=== PATIENT | female | born 1955 | race Caucasian/White ===

== ENCOUNTER 2017-12-13 07:19 | Inpatient (IN) | payer OTHER ==
[2017-12-13 07:19] VITALS: BMI 26.6
[2017-12-13] MEDS ORDERED: Sodium Chloride 0.9% 1,000 ML IV ONE (07:54)
[2017-12-13] MEDS ORDERED: Sodium Chloride 0.9% 1,000 ML ONE (08:07)
[2017-12-13 08:10] LABS: SQUAMOUS EPITHIAL 1 /hpf (0-5); URINE BILIRUBIN NEGATIVE (NEGATIVE); URINE BLOOD 1+ (NEGATIVE); URINE CLARITY Clear (Clear); URINE COLOR Yellow (YELLOW); URINE GLUCOSE (UA) NORMAL (Normal); URINE LEUKOCYTE ESTERASE NEG Leu/uL (Negative); URINE PROTEIN 1+ mg/dL (NEGATIVE); URINE UROBILINOGEN NORMAL mg/dL (0.2-1.0)
[2017-12-13 08:11] LABS: BASO # 0.1 K/uL (0.0-0.2); BASO % 0.5 % (0.0-2.0); HEMOGLOBIN 13.7 g/dL (11.0-16.0); LYMPH % 6.4 % (20.0-40.0); MEAN CELL VOLUME 88.7 fL (81.0-99.0); MEAN CORPUSCULAR HEMOGLOBIN 30.2 pg (27.0-31.0); MEAN CORPUSCULAR HGB CONC 34.1 g/dL (33.0-37.0); MEAN PLATELET VOLUME 8.3 fL (7.2-11.7); MONO # 0.8 K/uL (0.0-0.8); MONO % 4.8 % (0.0-10.0); NEUT # 14.1 K/uL (1.8-7.0); NEUT % 88.3 % (50.0-75.0); PLATELET COUNT 249 K/uL (130-400); RBC 4.54 Mil/uL (3.80-5.20); RED CELL DISTRIBUTION WIDTH 13.7 % (11.5-14.5)
[2017-12-13 08:23] LABS: ALB/GLOB RATIO 1.6 (1.0-2.1); ALBUMIN 5.1 g/dL (3.5-5.0); ALT/SGPT 44 U/L (9-52); AST/SGOT 29 U/L (14-36); BLOOD UREA NITROGEN 16 mg/dL (7-17); CALCIUM 9.2 mg/dl (8.6-10.4); GFR AFRICAN-AMERICAN > 60; GFR NON-AFRICAN AMERICAN > 60
[2017-12-13 08:32] LABS: BANDS 3 % (0-2); LYMPHOCYTE 7 % (20-40); MONOCYTE 4 % (0-10); NEUTROPHIL 86 % (50-75); PLATELET ESTIMATE NORMAL (NORMAL); TOTAL CELLS COUNTED 100
--- NOTE | 2017-12-13 08:44 | C.PDOC ---
History Of Present Illness 62-year-old female, PMHx includes Hypertension and Kidney Stones, presents to the emergency department with complaints of burning sensation in the back, radiating up to shoulder for the past two days. Pain worsened yesterday, associated with three episodes of non-bloody/non-bilious vomiting. She denies any abdominal pain, fever, chills, symptoms, or any other associated symptoms. No other complaints at this time. Time Seen by Provider: 12/13/17 07:37 Chief Complaint (Nursing): Back Pain History Per: Patient History/Exam Limitations: no limitations Onset/Duration Of Symptoms: Days Current Symptoms Are (Timing): Still Present Severity: Moderate Past Medical History Reviewed: Historical Data, Nursing Documentation, Vital Signs Vital Signs: Last Vital Signs Temp 98.1 F 12/13/17 11:33 Pulse 83 12/13/17 11:33 Resp 18 12/13/17 11:33 BP 189/105 H 12/13/17 11:33 Pulse Ox 100 12/13/17 11:33 - Medical History PMH: Arthritis, Gall Bladder Disease (GALLSTONES), HTN, Kidney Stones, Osteoporosis, Chronic Kidney Disease, Rheumatoid Arthritis Surgical History: Cholecystectomy, Endoscopy, Hernia Repair (Laparoscopic Umbilical Herniorrhaphy) Other Surgeries: hysterectomy - [facility] Procedures LAPAROSCOPIC CHOLECYSTECTOMY (03/25/14) OTHER LAPAROSCOPIC UMBILICAL HERNIORRHAPHY (03/25/14) REMOV URETERAL DRAIN (01/06/15) URETERAL CATHETERIZATION (12/22/14) URETEROSCOPY (01/06/15) Family History: States: No Known Family Hx - Social History Hx Tobacco Use: No Hx Alcohol Use: No Hx Substance Use: No - Immunization History Hx Tetanus Toxoid Vaccination: No Hx Influenza Vaccination: No Hx Pneumococcal Vaccination: No Review Of Systems Constitutional: Negative for: Fever, Chills Respiratory: Negative for: Shortness of Breath Gastrointestinal: Positive for: Nausea, Vomiting Genitourinary: Negative for: Incontinence, Vaginal Discharge, Vaginal Bleeding Musculoskeletal: Positive for: Back Pain Skin: Negative for: Rash Neurological: Negative for: Weakness, Numbness ED Course And Treatment - Laboratory Results Result Diagrams: 12/13/17 08:05 12/13/17 08:05 O2 Sat by Pulse Oximetry: 99 Pulse Ox Interpretation: Normal (RA) Medical Decision Making Medical Decision Making: Plan: * CT Abd/Pel * Bloodwork * IVF, Toradol * Urine Culture * UA * Reassess and Disposition * 1141 pt with neg non contrast abdominal ct, neg cxr, neg ua. pt with right flank pain, n/v and leucocytosis. discussed with Dr Tariq Yoder, will admit to his service (covers for Dr Lynch). Disposition Discussed With Dr.: Derrcik Yoder Doctor Will See Patient In The: Hospital - Disposition Disposition: HOSPITALIZED Disposition Time: 11:42 Condition: STABLE Forms: [facility] (Belarusian) - Clinical Impression Clinical Impression: Leucocytosis, Vomiting, Right flank pain - Scribe Statement The provider has reviewed the documentation as recorded by the Scribe (Renee Mcrae) All medical record entries made by the Scribe were at my direction and personally dictated by me. I have reviewed the chart and agree that the record accurately reflects my personal performance of the history, physical exam, medical decision making, and the department course for this patient. I have also personally directed, reviewed, and agree with the discharge instructions and disposition.
--- NOTE | 2017-12-13 10:11 | CT ---
Date of service: 12/13/2017 PROCEDURE: CT Abdomen and Pelvis without intravenous contrast HISTORY: right flank pain and hematuria, hx stones. COMPARISON: 01/04/2017. TECHNIQUE: CT scan of the abdomen and pelvis was performed without administration of intravenous contrast. Oral contrast was not administered. Coronal and sagittal reformatted images were obtained. . Radiation dose: Total exam DLP = mGy-cm. This CT exam was performed using one or more of the following dose reduction techniques: Automated exposure control, adjustment of the mA and/or kV according to patient size, and/or use of iterative reconstruction technique. FINDINGS: LOWER THORAX: The visualized lungs are clear. LIVER: Normal in size. No intrahepatic ductal dilatation. GALLBLADDER AND BILE DUCTS: Surgically absent. PANCREAS: Normal in size. No ductal dilatation. SPLEEN: Normal in size. ADRENALS: Normal in size. No discrete nodule. KIDNEYS AND URETERS: Normal in size without nephrolithiasis. No hydronephrosis. VASCULATURE: No aortic aneurysm. BOWEL: The small bowel loops are normal in caliber. There is extensive colonic diverticulosis, worse in the left hemicolon without CT evidence for acute diverticulitis. No bowel dilatation or wall thickening. No bowel obstruction. APPENDIX: Normal appendix. PERITONEUM: No free fluid. No free air. LYMPH NODES: No enlarged lymph nodes. BLADDER: Well distended and grossly normal in appearance. REPRODUCTIVE: The uterus is surgically absent. BONES: No acute fracture. Within normal limits for the patient's age. OTHER FINDINGS: None. IMPRESSION: No acute abdominal or pelvic abnormality. Specifically, no evidence for nephrolithiasis, hydronephrosis or obstructive uropathy. Extensive colonic diverticulosis, worse in the left hemicolon without CT evidence for acute diverticulitis.
[2017-12-13 10:41] LABS: LIPASE 93 U/L (23-300)
--- NOTE | 2017-12-13 10:43 | RAD ---
HISTORY: COMPARISON: 04/05/2016. TECHNIQUE: Chest PA and lateral FINDINGS: LINES AND TUBES: None. LUNG AND PLEURA: The lungs are well inflated and clear. No pleural effusion or pneumothorax. HEART AND MEDIASTINUM: The heart is not enlarged. The hilar and mediastinal contours are within normal limits. SKELETAL STRUCTURES: The bony structures are within normal limits for the patient's age. VISUALIZED UPPER ABDOMEN: Normal. OTHER FINDINGS: None. IMPRESSION: No active pulmonary disease.
[2017-12-13 12:18] LABS: VENOUS BLOOD GAS BASE EXCESS -5.7 mmol/L (0.0-2.0); VENOUS BLOOD GAS PCO2 21 mmHg (40-60); VENOUS BLOOD GAS PO2 47 mm/Hg (30-55); VENOUS BLOOD PH 7.48 (7.32-7.43)
--- NOTE | 2017-12-13 12:21 | CP.PCM.HP ---
<Darnlel Wolff - Last Filed: 12/13/17 19:52> History of Present Illness - History of Present Illness History of Present Illness: Patient seen and examined at approximately 12:29 PM in ED Bed 13. [employer]ator Tiffanie Tian [id number] assisted with translation. Patient is a FULL CODE status at this time. Patient does not have an official advance directive. Patient's emergency contact is her daughter Shivani Carlton. She can be reached at [phone]. CC: abdominal pain HPI: 62 year old female with past medical history significant for HTN, nephrolithiasis, osteoporosis and arthritis presents with right sided pain which she has been experiencing for the past two days. Patient states that her symptoms began with a achy, burning pain two days ago. Patient rates the pain an 8 or 10 in intensity. She states that the pain is in the right flank area with radiation to the upper back. She states that she is able to eat without difficulties. She was able to tolerate her dinner yesterday at 8:30pm. The abdominal pain is constant in nature. It is not associated with meals. She states that she has had normal bowel and urination habits as well. She began experiencing nausea and vomiting yesterday at 4am. Patient states that she had 3 episodes of non bloody-non bilious emesis at home. She later had 3 episodes of emesis in the ER. Patient denies fevers, chest pain, headaches, constipation , hematemesis, hematochezia, dysuria at this time. PMHx- as mentioned above PSHx- Cholecystectomy, Hysterectomy and cystosscopy with ureteroscopy Fam Hx- denies Meds- Losartan 25mg PO daily, Naproxen PRN Social- Admits to drinking alcohol once a month .Denies illicit drug or tobacco use. Currently not working- Previously worked sewing in a factory. Lives with daughter and son. Allergies- denies Present on Admission - Present on Admission Any Indicators Present on Admission: No Review of Systems - Review of Systems Systems not reviewed;Unavailable: Language Barrier - Constitutional Constitutional: Chills. absent: Fever, Headache - EENT Eyes: absent: Blurred Vision, Change in Vision Nose/Mouth/Throat: absent: Nasal Congestion, Mouth Pain - Cardiovascular Cardiovascular: absent: Chest Pain, Chest Pain at Rest, Dyspnea - Respiratory Respiratory: absent: Dyspnea, Dyspnea on Exertion - Gastrointestinal Gastrointestinal: Abdominal Pain, Nausea, Vomiting. absent: Constipation, Diarrhea, Excessive Flatus, Loose Stools - Genitourinary Genitourinary: absent: Difficulty Urinating, Dysuria, Hematuria, Urinary Frequency, Urinary Hesitance, Urinary Urgency, Freq UTI - Musculoskeletal Musculoskeletal: Back Pain. absent: Arthralgias - Neurological Neurological: absent: Dizziness, Numbness - Psychiatric Psychiatric: absent: Anxiety, Confusion - Hematologic/Lymphatic Hematologic: absent: Easy Bleeding, Easy Bruising Past Patient History - Infectious Disease Hx of Infectious Diseases: None - Past Medical History & Family History Past Medical History?: No - Past Social History Smoking Status: Never Smoked Alcohol: Social Drugs: Denies Home Situation {Lives}: With Family - CARDIAC Hx Hypertension: Yes - PULMONARY Hx Respiratory Disorders: No - NEUROLOGICAL Hx Neurological Disorder: No - HEENT Hx HEENT Problems: No - RENAL Hx Chronic Kidney Disease: Yes Hx Kidney Stones: Yes - ENDOCRINE/METABOLIC Hx Endocrine Disorders: No - HEMATOLOGICAL/ONCOLOGICAL Hx Blood Disorders: No - INTEGUMENTARY Hx Dermatological Problems: No - MUSCULOSKELETAL/RHEUMATOLOGICAL Hx Arthritis: Yes Hx Osteoporosis: Yes Hx Rheumatoid Arthritis: Yes - GASTROINTESTINAL Hx Gall Bladder Disease: Yes (GALLSTONES) - GENITOURINARY/GYNECOLOGICAL Hx Genitourinary Disorders: No - PSYCHIATRIC Hx Substance Use: No - SURGICAL HISTORY Hx Cholecystectomy: Yes - ANESTHESIA Hx Anesthesia: Yes Hx Anesthesia Reactions: No Meds Allergies/Adverse Reactions: Allergies Allergy/AdvReac Type Severity Reaction Status Date / Time No Known Allergies Allergy Verified 12/13/17 07:32 Physical Exam - Constitutional Appears: Non-toxic - Head Exam Head Exam: ATRAUMATIC, NORMAL INSPECTION, NORMOCEPHALIC - Eye Exam Eye Exam: EOMI, Normal appearance, PERRL. absent: Scleral icterus Pupil Exam: NORMAL ACCOMODATION - Neck Exam Neck exam: Positive for: Full Rom - Respiratory Exam Respiratory Exam: NORMAL BREATHING PATTERN. absent: Wheezes - Cardiovascular Exam Cardiovascular Exam: +S1, +S2. absent: Systolic Murmur - GI/Abdominal Exam GI & Abdominal Exam: Normal Bowel Sounds, Soft. absent: Distended, Guarding, Tenderness - Expanded GI/Abdominal Exam Expanded Expanded GI & Abdominal Exam: absent: Ascites, Yuen's Sign, Rovsing's Sign, McBurney's Point Tenderness - Extremities Exam Extremities exam: Positive for: full ROM. Negative for: calf tenderness, pedal edema - Back Exam Back exam: FULL ROM. absent: CVA tenderness (L), CVA tenderness (R) - Neurological Exam Neurological exam: Alert, Oriented x3 - Psychiatric Exam Psychiatric exam: Normal Affect, Normal Mood - Skin Skin Exam: Intact, Warm Results - Vital Signs Recent Vital Signs: Last Vital Signs Temp 98.1 F 12/13/17 11:33 Pulse 83 12/13/17 11:33 Resp 18 12/13/17 11:33 BP 189/105 H 12/13/17 11:33 Pulse Ox 99 12/13/17 11:43 - Labs Result Diagrams: 12/13/17 08:05 12/13/17 08:05 Labs: Laboratory Results - last 24 hr 12/13/17 12/13/17 12/13/17 08:05 08:05 08:05 WBC 16.0 H D RBC 4.54 Hgb 13.7 Hct 40.3 MCV 88.7 MCH 30.2 MCHC 34.1 RDW 13.7 Plt Count 249 MPV 8.3 Neut % (Auto) 88.3 H Lymph % (Auto) 6.[address] % (Auto) 4.8 Eos % (Auto) 0.0 Baso % (Auto) 0.5 Neut # (Auto) 14.1 H Lymph # (Auto) 1.0 [place] # (Auto) 0.8 Eos # (Auto) 0.0 Baso # (Auto) 0.1 Neutrophils % (Manual) 86 H Band Neutrophils % 3 H Lymphocytes % (Manual) 7 L Monocytes % (Manual) 4 Platelet Estimate Normal RBC Morphology Normal pO2 VBG pH VBG pCO2 VBG HCO3 VBG Total CO2 VBG O2 Sat (Calc) VBG Base Excess VBG Potassium Glucose Lactate Crit Value Called To Crit Value Called By Crit Value Read Back Blood Gas Notified Time Sodium 143 Potassium 4.2 Chloride 102 Carbon Dioxide 25 Anion Gap 20 BUN 16 Creatinine 0.6 L Est GFR ( Amer) > 60 Est GFR (Non-Af Amer) > 60 Random Glucose 127 H Calcium 9.2 Total Bilirubin 0.5 AST 29 ALT 44 Alkaline Phosphatase 77 Total Protein 8.4 H Albumin 5.1 H Globulin 3.3 Albumin/Globulin Ratio 1.6 Lipase 93 Venous Blood Potassium Urine Color Yellow Urine Clarity Clear Urine pH 7.0 Ur Specific Agenda 1.019 Urine Protein 1+ H Urine Glucose (UA) Normal Urine Ketones Negative Urine Blood 1+ H Urine Nitrate Negative Urine Bilirubin Negative Urine Urobilinogen Normal Ur Leukocyte Esterase Neg Urine WBC (Auto) < 1 Urine RBC (Auto) 16 H Ur Squamous Epith Cells 1 12/13/17 12:12 WBC RBC Hgb Hct MCV MCH MCHC RDW Plt Count MPV Neut % (Auto) Lymph % (Auto) [place] % (Auto) Eos % (Auto) Baso % (Auto) Neut # (Auto) Lymph # (Auto) [place] # (Auto) Eos # (Auto) Baso # (Auto) Neutrophils % (Manual) Band Neutrophils % Lymphocytes % (Manual) Monocytes % (Manual) Platelet Estimate RBC Morphology pO2 47 VBG pH 7.48 H VBG pCO2 21 L VBG HCO3 20.2 VBG Total CO2 16.2 L VBG O2 Sat (Calc) 90.1 H VBG Base Excess -5.7 L VBG Potassium 2.0 L* Glucose 71 Lactate 1.4 Crit Value Called To Aubrey jerez rn Crit Value Called By Monika Crit Value Read Back Y Blood Gas Notified Time 1220 Sodium 145.0 Potassium Chloride 120.0 H Carbon Dioxide Anion Gap BUN Creatinine Est GFR ( Amer) Est GFR (Non-Af Amer) Random Glucose Calcium Total Bilirubin AST ALT Alkaline Phosphatase Total Protein Albumin Globulin Albumin/Globulin Ratio Lipase Venous Blood Potassium 2.0 L* Urine Color Urine Clarity Urine pH Ur Specific Agenda Urine Protein Urine Glucose (UA) Urine Ketones Urine Blood Urine Nitrate Urine Bilirubin Urine Urobilinogen Ur Leukocyte Esterase Urine WBC (Auto) Urine RBC (Auto) Ur Squamous Epith Cells Assessment & Plan (1) Abdominal pain Assessment and Plan: CT abdomen and pelvis without contrast - Diverticulosis noted. Negative study for nephrolithiasis. Refer to complete report. Atypical signs of abdominal pain could include ischemic bowel or PA. Could also be musculoskeletal in nature. F/U CTA chest, abdomen, pelvis to rule out ischemic causes. Obstruction series ordered- F/U report D-dimer- Negative EKG- Sinus tach noted Zofran, toradol PRN on board Patient would benefit from bowel rest and then trial of food slowly- small bites and sips at a time. UA with RBCs noted. Negative for leukocyte esterase and nitrates. F/U UC F/U additional cultures. Status: Acute (2) Leukocytosis Assessment and Plan: Likely acute phase response, stress mediated No signs of fever at this time F/U cultures Status: Acute (3) HTN (hypertension) Assessment and Plan: Continue home medication- Losartan 25 mg PO daily Status: Acute (4) Prophylactic measure Assessment and Plan: DVT Prophylaxis- Heparin SC Q12 GI Prophylaxis not currently indicated Status: Acute <Derrick Yoder Boris - Last Filed: 12/15/17 21:13> Results - Vital Signs Recent Vital Signs: Last Vital Signs Temp 98.7 F 12/15/17 21:05 Pulse 68 12/15/17 21:05 Resp 20 12/15/17 21:05 BP 193/106 H 12/15/17 21:05 Pulse Ox 98 12/15/17 21:05 - Labs Result Diagrams: 12/15/17 07:43 12/15/17 07:43 Labs: Laboratory Results - last 24 hr 12/15/17 12/15/17 07:43 07:43 WBC 12.3 H RBC 4.61 Hgb 13.7 Hct 41.0 MCV 88.9 MCH 29.7 MCHC 33.4 RDW 14.0 Plt Count 253 MPV 8.3 Neut % (Auto) 74.2 Lymph % (Auto) 16.[address] % (Auto) 9.2 Eos % (Auto) 0.1 Baso % (Auto) 0.5 Neut # (Auto) 9.1 H Lymph # (Auto) 2.0 [place] # (Auto) 1.1 H Eos # (Auto) 0.0 Baso # (Auto) 0.1 Sodium 139 Potassium 4.8 Chloride 100 Carbon Dioxide 26 Anion Gap 18 BUN 21 H Creatinine 0.7 Est GFR ( Amer) > 60 Est GFR (Non-Af Amer) > 60 Random Glucose 138 H Calcium 8.8 Phosphorus 2.4 L Magnesium 2.2 Total Bilirubin 0.6 AST 42 H D ALT 67 H D Alkaline Phosphatase 67 Total Protein 7.9 Albumin 4.6 Globulin 3.4 Albumin/Globulin Ratio 1.4 Attending/Attestation - Attestation I have personally seen and examined this patient.: Yes I have fully participated in the care of the patient.: Yes I have reviewed all pertinent clinical information: Yes Notes (Text): 12/15/17 21:12 This is a late entry. The admission of this patient was gone over in detail with resident Dr. Wolff. Derrick Yoder D.O.
[2017-12-13] MEDS ORDERED: Iodixanol 320 MG/ML 100 ML BOTTLE IV ONE (14:18)
--- NOTE | 2017-12-13 16:23 | CT ---
Date of service: 12/13/2017. PROCEDURE: CT Chest, Abdomen and Pelvis with intravenous contrast. HISTORY: significant abdominal pain, rule out infarct. COMPARISON: Comparison made with the noncontrast CT scan abdomen pelvis 12/13/17. TECHNIQUE: Contiguous helical/ transaxial sections of the chest abdomen pelvis performed in standard fashion employing CTA protocol following the intravenous injection of approximately 100 cc Visipaque 320 contrast material. Radiation dose: Total exam DLP = 833.39 mGy-cm. This CT exam was performed using one or more of the following dose reduction techniques: Automated exposure control, adjustment of the mA and/or kV according to patient size, and/or use of iterative reconstruction technique. . FINDINGS: CT CHEST WITH CONTRAST: LUNGS: Clear. No nodule, mass or consolidation. MEDIASTINUM: The thoracic aorta wall is widely patent without occlusion aneurysm or dissection. No significant atherosclerotic plaque disease. Visualized great vessels are also widely patent. Heart size within range of normal. No significant pericardial effusion. Few small nonspecific mediastinal lymph nodes are present. No significant hilar adenopathy. Central airways midline and patent. No large central endoluminal lesions. There is small hiatal hernia. LYMPH NODES: Unremarkable. PLEURA: Unremarkable. No pneumothorax. No pleural fluid. BONES: Multilevel degenerative spondylosis of the thoracic spine. No acute compression fractures no retropulsed fragments. OTHER FINDINGS: None. CT ABDOMEN AND PELVIS: LIVER: Liver exhibits normal size Mild fatty hepatic infiltration. No evidence of solid organ infarct. No obvious hepatic mass or collection. GALLBLADDER AND BILE DUCTS: Cholecystectomy PANCREAS: Visualized portions of the pancreas unremarkable without masses collections or calcifications. SPLEEN: Spleen exhibits normal size and attenuation pattern without mass collection or calcification. No evidence of splenic infarct. ADRENALS: No adrenal lesions. KIDNEYS AND URETERS: Kidneys demonstrate symmetric nephrograms. No evidence of nephrolithiasis or hydronephrosis. No obvious renal masses or collections. VASCULATURE: No evidence of abdominal aortic or iliac artery occlusion nor significant atherosclerotic disease. No evidence of abdominal aortic dissection. The major branch vessels including the celiac axis, SMA and RADHA widely patent. . The proximal margins of these vessels also appear patent. BOWEL: Evaluation of the bowel is somewhat limited due to the lack of oral contrast material. Stomach is incompletely distended. Visualized loops small bowel exhibit normal contour and caliber. No evidence of mechanical small bowel obstruction. Stool and air seen throughout the large bowel. Multiple colonic diverticula the virtual at sigmoid descending colon are present. . No evidence of acute diverticulitis. APPENDIX: Normal-appearing appendix. PERITONEUM: Unremarkable. No free fluid. No free air. LYMPH NODES: Unremarkable. No enlarged lymph nodes. BLADDER: Urinary bladder incompletely distended which presumably accounts slight thick-walled appearance. Correlation with urinalysis to exclude cystitis. REPRODUCTIVE: Hysterectomy. BONES: Multilevel degenerative spondylosis of the lumbar spine. No acute compression fractures. OTHER FINDINGS: None. IMPRESSION: The thoracic aorta and great vessels are widely patent without evidence of occlusion significant atherosclerotic disease aneurysm nor dissection. The abdominal aorta and iliac arteries are well opacified and patent throughout without occlusion. No evidence of abdominal aortic aneurysm nor dissection. The major branch vessels of the abdominal aorta (celiac axis, SMA and RADHA) widely patent. No definitive evidence of solid organ infarct for bowel ischemia.
[2017-12-13] MEDS: Pantoprazole 40 mg EC Tab PO SCH (22:46)
[2017-12-14 07:29] LABS: BASO # 0.1 K/uL (0.0-0.2); BASO % 0.4 % (0.0-2.0); LYMPH % 13.9 % (20.0-40.0); MEAN CELL VOLUME 89.3 fL (81.0-99.0); MEAN CORPUSCULAR HEMOGLOBIN 29.3 pg (27.0-31.0); MEAN CORPUSCULAR HGB CONC 32.9 g/dL (33.0-37.0); MEAN PLATELET VOLUME 9.1 fL (7.2-11.7); NEUT # 11.3 K/uL (1.8-7.0); NEUT % 78.7 % (50.0-75.0); NRBC % 0.1 % (0.0-2.0); RBC 4.79 Mil/uL (3.80-5.20); RED CELL DISTRIBUTION WIDTH 13.8 % (11.5-14.5); WHITE BLOOD COUNT 14.3 K/uL (4.8-10.8)
[2017-12-14 07:57] LABS: ALB/GLOB RATIO 1.6 (1.0-2.1); ALT/SGPT 46 U/L (9-52); AST/SGOT 31 U/L (14-36); BLOOD UREA NITROGEN 12 mg/dL (7-17); CALCIUM 9.2 mg/dl (8.6-10.4); GFR AFRICAN-AMERICAN > 60; GFR NON-AFRICAN AMERICAN > 60
[2017-12-14] MEDS: Pantoprazole 40 mg EC Tab PO SCH (09:25)
[2017-12-14] MEDS ORDERED: Pneumococcal 23-Valent Vaccine IM ONE (10:00)
[2017-12-14] MEDS ORDERED: Magnesium Citrate Oral SOL (300 ml) PO ONE (14:38)
[2017-12-14] MEDS: Sodium Chloride 0.9% 1,000 ML IV SCH (15:56)
[2017-12-14 16:49] VITALS: RESP 20
--- NOTE | 2017-12-14 21:04 | CP.PCM.PN ---
<Darnell Wolff - Last Filed: 12/14/17 21:17> Subjective - Date & Time of Evaluation Date of Evaluation: 12/14/17 Time of Evaluation: 17:20 - Subjective Subjective: PGY 3 Med Progress Note- Dr. Chino Yoder's Service Patient seen and examined in mild discomfort. Patient noted repeated emesis spells. Per nursing, patient had trouble keeping down prune juice and medication that was administered. Patient's blood pressure reportedly elevated as well. Patient's abdominal pain ceased. Patient denied chest pain at this time. She further denies palpitations, shortness of breath, urinary changes or fevers at this time. Objective - Vital Signs/Intake and Output Vital Signs (last 24 hours): Temp Pulse Resp BP Pulse Ox 99.9 F H 76 20 169/93 H 99 12/14/17 15:00 12/14/17 18:40 12/14/17 15:00 12/14/17 18:40 12/14/17 15:00 - Medications Medications: Current Medications Docusate Sodium (Colace) 100 mg PO TID [facility] Last Admin: 12/14/17 17:47 Dose: 100 mg Heparin Sodium (Porcine) (Heparin) 5,000 units SC Q12 [facility] Last Admin: 12/14/17 09:25 Dose: 5,000 units Hydralazine HCl (Apresoline) 10 mg PO QID [facility] Last Admin: 12/14/17 17:47 Dose: 10 mg Sodium Chloride (Sodium Chloride 0.9%) 1,000 mls @ 70 mls/hr IV .[id number] [facility] Last Admin: 12/14/17 15:56 Dose: 70 mls/hr Ketorolac Tromethamine (Toradol) 30 mg IVP Q6 PRN PRN Reason: Pain, severe (8-10) Last Admin: 12/14/17 17:51 Dose: 30 mg Ketorolac Tromethamine (Toradol) 15 mg IVP Q6 PRN PRN Reason: Pain, moderate (4-7) Last Admin: 12/14/17 08:38 Dose: 15 mg Losartan Potassium (Cozaar) 50 mg PO Q24H [facility] Metoclopramide HCl (Reglan) 10 mg IVP Q6H PRN PRN Reason: Nausea/Vomiting Last Admin: 12/14/17 17:06 Dose: 10 mg Metoprolol Tartrate (Lopressor) 25 mg PO BID [facility] Last Admin: 12/14/17 17:47 Dose: 25 mg Ondansetron HCl (Zofran Inj) 4 mg IVP Q6 PRN PRN Reason: Nausea/Vomiting Pantoprazole Sodium (Protonix Ec Tab) 40 mg PO DAILY [facility] Last Admin: 12/14/17 09:25 Dose: 40 mg - Labs Labs: 12/14/17 07:09 12/14/17 07:09 - Constitutional Appears: Non-toxic, No Acute Distress - Head Exam Head Exam: ATRAUMATIC, NORMAL INSPECTION - Eye Exam Eye Exam: EOMI, Normal appearance, PERRL Pupil Exam: NORMAL ACCOMODATION - ENT Exam ENT Exam: Mucous Membranes Moist - Neck Exam Neck Exam: Full ROM - Respiratory Exam Respiratory Exam: NORMAL BREATHING PATTERN - Cardiovascular Exam Cardiovascular Exam: +S1, +S2 - GI/Abdominal Exam GI & Abdominal Exam: Soft. absent: Tenderness - Extremities Exam Extremities Exam: Full ROM - Back Exam Back Exam: Full ROM - Neurological Exam Neurological Exam: Alert, Awake, CN II-XII Intact, Oriented x3 Neuro motor strength exam: Left Upper Extremity: 5, Right Upper Extremity: 5, Left Lower Extremity: 5, Right Lower Extremity: 5 - Psychiatric Exam Psychiatric exam: Normal Affect, Normal Mood - Skin Skin Exam: Dry, Warm. absent: Rash, Urticaria, Vesicles Assessment and Plan (1) Abdominal pain Status: Acute (2) Leukocytosis Status: Acute (3) HTN (hypertension) Status: Chronic (4) Prophylactic measure Status: Acute - Assessment and Plan (Free Text) Assessment: Abdominal Pain Assessment and Plan: Resolved CT abdomen and pelvis without contrast - Diverticulosis noted. Negative study for nephrolithiasis. Refer to complete report. Pain Likely musculoskeletal in nature. CTA chest, abdomen negative for ischemic disease Obstruction series ordered- Confirms stool. Refer to complete report. Colace added on D-dimer- Negative EKG- Sinus tach noted UA with RBCs noted. Negative for leukocyte esterase and nitrates. In light of negative urinary symptoms, will decide upon need to repeat. Status: Acute HTN (hypertension) Assessment and Plan: Uncontrolled. Adjusted to include Hydralazine 10 mg four times a day, Lopressor 25 mg BID at this time. Losartan increased to 50 mg Monitor Status: Acute Nausea and Vomiting Assessment and Plan: Zofran and Reglan, toradol PRN on board Patient would benefit from bowel rest and then trial of food slowly- small bites and sips at a time. Status: Acute Leukocytosis Assessment and Plan: Likely acute phase response, stress mediated. Improving No true fever noted. Subjective warmth 99.9F Blood cultures negative to date. UC contaminated at this time. In light of negative urinary symptoms, will decide upon need to repeat. Status: Acute Prophylactic measure Assessment and Plan: DVT Prophylaxis- Heparin SC Q12 PPI 40 mg PO daily Status: Acute <Derrick Yoder - Last Filed: 12/15/17 21:12> Objective - Vital Signs/Intake and Output Vital Signs (last 24 hours): Temp Pulse Resp BP Pulse Ox 98.7 F 68 20 193/106 H 98 12/15/17 21:05 12/15/17 21:05 12/15/17 21:05 12/15/17 21:05 12/15/17 21:05 - Medications Medications: Current Medications Docusate Sodium (Colace) 100 mg PO TID [facility] Last Admin: 12/15/17 17:37 Dose: 100 mg Heparin Sodium (Porcine) (Heparin) 5,000 units SC Q12 [facility] Last Admin: 12/15/17 09:41 Dose: 5,000 units Hydralazine HCl (Apresoline) 50 mg PO QID [facility] Last Admin: 12/15/17 17:37 Dose: 50 mg Ketorolac Tromethamine (Toradol) 30 mg IVP Q6 PRN PRN Reason: Pain, severe (8-10) Last Admin: 12/15/17 19:00 Dose: 30 mg Ketorolac Tromethamine (Toradol) 15 mg IVP Q6 PRN PRN Reason: Pain, moderate (4-7) Last Admin: 12/14/17 08:38 Dose: 15 mg Losartan Potassium (Cozaar) 100 mg PO Q24H [facility] Metoclopramide HCl (Reglan) 10 mg IVP Q6H PRN PRN Reason: Nausea/Vomiting Last Admin: 12/15/17 09:37 Dose: 10 mg Metoprolol Tartrate (Lopressor) 25 mg PO BID [facility] Last Admin: 12/15/17 17:37 Dose: 25 mg Ondansetron HCl (Zofran Inj) 4 mg IVP Q6 PRN PRN Reason: Nausea/Vomiting Last Admin: 12/14/17 21:18 Dose: 4 mg Pantoprazole Sodium (Protonix Ec Tab) 40 mg PO DAILY [facility] Last Admin: 12/15/17 09:40 Dose: 40 mg - Labs Labs: 12/15/17 07:43 12/15/17 07:43 Attending/Attestation - Attestation I have personally seen and examined this patient.: Yes I have fully participated in the care of the patient.: Yes I have reviewed all pertinent clinical information, including history, physical exam and plan: Yes Notes (Text): 12/15/17 21:12 This is a late entry Care of this patient was gone over with resident Dr. Wolff.
[2017-12-15] MEDS ORDERED: Labetalol 25mg/5ml Syringe IVP STA (01:20)
[2017-12-15] MEDS ORDERED: Labetalol 5mg/ml (4ml) IVP ONE (01:45)
[2017-12-15] MEDS: Sodium Chloride 0.9% 1,000 ML IV SCH (06:10)
[2017-12-15 08:03] LABS: BASO # 0.1 K/uL (0.0-0.2); BASO % 0.5 % (0.0-2.0); EOS % 0.1 % (0.0-4.0); HEMOGLOBIN 13.7 g/dL (11.0-16.0); MEAN CELL VOLUME 88.9 fL (81.0-99.0); MEAN CORPUSCULAR HEMOGLOBIN 29.7 pg (27.0-31.0); MEAN CORPUSCULAR HGB CONC 33.4 g/dL (33.0-37.0); MEAN PLATELET VOLUME 8.3 fL (7.2-11.7); MONO # 1.1 K/uL (0.0-0.8); MONO % 9.2 % (0.0-10.0); NEUT # 9.1 K/uL (1.8-7.0); NEUT % 74.2 % (50.0-75.0); RBC 4.61 Mil/uL (3.80-5.20); WHITE BLOOD COUNT 12.3 K/uL (4.8-10.8)
[2017-12-15 08:10] LABS: ALB/GLOB RATIO 1.4 (1.0-2.1); ALBUMIN 4.6 g/dL (3.5-5.0); ALT/SGPT 67 U/L (9-52); AST/SGOT 42 U/L (14-36); BLOOD UREA NITROGEN 21 mg/dL (7-17); CALCIUM 8.8 mg/dl (8.6-10.4); GFR AFRICAN-AMERICAN > 60; GFR NON-AFRICAN AMERICAN > 60
[2017-12-15] MEDS ORDERED: Potassium Phosphate 15 MMOLE in Sodium Chloride 0.9% 250 ML IVPB ONE (09:28)
[2017-12-15] MEDS: Pantoprazole 40 mg EC Tab PO SCH (09:40)
--- NOTE | 2017-12-15 15:08 | CP.PCM.PN ---
<Darnell Wolff - Last Filed: 12/15/17 20:02> Subjective - Date & Time of Evaluation Date of Evaluation: 12/15/17 Time of Evaluation: 12:11 - Subjective Subjective: PGY 3 Med Progress Note- Dr. Chino Yoder's service Patient seen and examined in no apparent acute distress. Patient reports malaise at this time. Patient states that she had one episode of liquid non bloodly emesis earlier today. She states that she feels tired and weak. She has not been tolerating much of her diet. Per her daughter, she did not each much of her dinner or breakfast. Patient has been moving her bowels. Patient denies abdominal pain at this time. Objective - Vital Signs/Intake and Output Vital Signs (last 24 hours): Temp Pulse Resp BP Pulse Ox 98.4 F 63 20 182/99 H 98 12/15/17 07:00 12/15/17 12:09 12/15/17 07:00 12/15/17 14:30 12/15/17 07:00 Intake and Output: 12/15/17 12/15/17 06:59 18:59 Intake Total 1320 Balance 1320 - Medications Medications: Current Medications Docusate Sodium (Colace) 100 mg PO TID [facility] Last Admin: 12/15/17 13:13 Dose: 100 mg Heparin Sodium (Porcine) (Heparin) 5,000 units SC Q12 [facility] Last Admin: 12/15/17 09:41 Dose: 5,000 units Hydralazine HCl (Apresoline) 25 mg PO QID [facility] Last Admin: 12/15/17 13:13 Dose: 25 mg Sodium Chloride (Sodium Chloride 0.9%) 1,000 mls @ 70 mls/hr IV .[id number] [facility] Last Admin: 12/15/17 06:10 Dose: 70 mls/hr Potassium Phosphate 15 mmole/ (Sodium Chloride) 255 mls @ 42.5 mls/hr IVPB ONCE ONE Stop: 12/15/17 15:27 Last Admin: 12/15/17 10:18 Dose: 42.5 mls/hr Ketorolac Tromethamine (Toradol) 30 mg IVP Q6 PRN PRN Reason: Pain, severe (8-10) Last Admin: 12/14/17 17:51 Dose: 30 mg Ketorolac Tromethamine (Toradol) 15 mg IVP Q6 PRN PRN Reason: Pain, moderate (4-7) Last Admin: 12/14/17 08:38 Dose: 15 mg Losartan Potassium (Cozaar) 50 mg PO Q24H [facility] Last Admin: 12/15/17 13:13 Dose: 50 mg Metoclopramide HCl (Reglan) 10 mg IVP Q6H PRN PRN Reason: Nausea/Vomiting Last Admin: 12/15/17 09:37 Dose: 10 mg Metoprolol Tartrate (Lopressor) 25 mg PO BID [facility] Last Admin: 12/15/17 09:40 Dose: 25 mg Ondansetron HCl (Zofran Inj) 4 mg IVP Q6 PRN PRN Reason: Nausea/Vomiting Last Admin: 12/14/17 21:18 Dose: 4 mg Pantoprazole Sodium (Protonix Ec Tab) 40 mg PO DAILY [facility] Last Admin: 12/15/17 09:40 Dose: 40 mg - Labs Labs: 12/15/17 07:43 12/15/17 07:43 - Constitutional Appears: Non-toxic, No Acute Distress - Head Exam Head Exam: ATRAUMATIC, NORMAL INSPECTION, NORMOCEPHALIC - Eye Exam Eye Exam: EOMI, Normal appearance, PERRL Pupil Exam: NORMAL ACCOMODATION - ENT Exam ENT Exam: Mucous Membranes Moist - Neck Exam Neck Exam: Full ROM - Respiratory Exam Respiratory Exam: NORMAL BREATHING PATTERN. absent: Wheezes - Cardiovascular Exam Cardiovascular Exam: +S1, +S2 - GI/Abdominal Exam GI & Abdominal Exam: Soft, Normal Bowel Sounds. absent: Tenderness - Extremities Exam Extremities Exam: Full ROM, Normal Capillary Refill. absent: Pedal Edema, Tenderness - Back Exam Back Exam: Full ROM, NORMAL INSPECTION - Neurological Exam Neurological Exam: Alert, Awake, Oriented x3 - Psychiatric Exam Psychiatric exam: Normal Affect, Normal Mood - Skin Skin Exam: Dry, Normal Color, Warm Assessment and Plan (1) Abdominal pain Status: Acute (2) Leukocytosis Status: Acute (3) HTN (hypertension) Status: Chronic (4) Prophylactic measure Status: Acute - Assessment and Plan (Free Text) Assessment: HTN (hypertension) Assessment and Plan: Uncontrolled. Increased medications: patient now on Hydralazine 50 mg PO four times a day, Lopressor 25 mg BID at this time. Losartan increased to 100 mg daily. Will have to address reasons as to why BP may be elevated. F/U Renal ultrasound, renal arterial ultrasound, urine metanephrines , thyroid studies. No adrenal lesions or masses noted on CT imaging Monitor Status: Acute Abdominal Pain Assessment and Plan: Resolved CT abdomen and pelvis without contrast - Diverticulosis noted. Negative study for nephrolithiasis. Refer to complete report. Pain likely musculoskeletal in nature. CTA chest, abdomen negative for ischemic disease Obstruction series ordered- Confirms stool. Refer to complete report. Colace added on. Patient is moving bowels D-dimer- Negative EKG- Sinus tach noted UA with RBCs noted. Negative for leukocyte esterase and nitrates. In light of negative urinary symptoms, will not repeat at this time. Status: Acute Nausea and Vomiting Assessment and Plan: Zofran and Reglan, toradol PRN on board Patient would benefit from bowel rest and then trial of food slowly - small bites and sips at a time. Status: Acute Leukocytosis Assessment and Plan: Likely acute phase response, stress mediated. Improving No true fever noted. Blood cultures negative to date. UC contaminated ; however In light of negative urinary symptoms, will not repeat. Status: Acute Prophylactic measure Assessment and Plan: DVT Prophylaxis- Heparin SC Q12 PPI 40 mg PO daily Status: Acute <Derrick Yoder - Last Filed: 12/15/17 21:11> Objective - Vital Signs/Intake and Output Vital Signs (last 24 hours): Temp Pulse Resp BP Pulse Ox 98.6 F 67 20 166/88 H 97 12/15/17 15:00 12/15/17 15:00 12/15/17 15:00 12/15/17 17:37 12/15/17 15:00 - Medications Medications: Current Medications Docusate Sodium (Colace) 100 mg PO TID [facility] Last Admin: 12/15/17 17:37 Dose: 100 mg Heparin Sodium (Porcine) (Heparin) 5,000 units SC Q12 [facility] Last Admin: 12/15/17 09:41 Dose: 5,000 units Hydralazine HCl (Apresoline) 50 mg PO QID [facility] Last Admin: 12/15/17 17:37 Dose: 50 mg Ketorolac Tromethamine (Toradol) 30 mg IVP Q6 PRN PRN Reason: Pain, severe (8-10) Last Admin: 12/15/17 19:00 Dose: 30 mg Ketorolac Tromethamine (Toradol) 15 mg IVP Q6 PRN PRN Reason: Pain, moderate (4-7) Last Admin: 12/14/17 08:38 Dose: 15 mg Losartan Potassium (Cozaar) 100 mg PO Q24H [facility] Metoclopramide HCl (Reglan) 10 mg IVP Q6H PRN PRN Reason: Nausea/Vomiting Last Admin: 12/15/17 09:37 Dose: 10 mg Metoprolol Tartrate (Lopressor) 25 mg PO BID [facility] Last Admin: 12/15/17 17:37 Dose: 25 mg Ondansetron HCl (Zofran Inj) 4 mg IVP Q6 PRN PRN Reason: Nausea/Vomiting Last Admin: 12/14/17 21:18 Dose: 4 mg Pantoprazole Sodium (Protonix Ec Tab) 40 mg PO DAILY [facility] Last Admin: 12/15/17 09:40 Dose: 40 mg - Labs Labs: 12/15/17 07:43 12/15/17 07:43 Attending/Attestation - Attestation I have personally seen and examined this patient.: Yes I have fully participated in the care of the patient.: Yes I have reviewed all pertinent clinical information, including history, physical exam and plan: Yes Notes (Text): 12/15/17 20:59 Patient was seen and examined at 3:45 PM 12/15/17 661 B Exam, assessment and plan were gone over with resident Dr. Wolff Also on ROS: 2 episodes of clear vomit 2 watery bowel movements NO ROSADO NO changes in vision NO changes in hearing Bilateral thoracic side pain that is described as a soreness that started today after she vomited NO chest pain NO abdominal pain NO burning/pain with urination NO other complaints upon FULL ROS HEENT, Cardio, Respiratory, GI, Ext, CN II through XII exams were uremarkable CT Angio Chest/Abdomen/Pelvis did NOT show any PE or evidence of ischemia Obstruction Series showed abundant stool but I did not see any direct evidence of obstruction (patient is moving bowels): please follow up official report Blood culture is negative to date Urine culture showed likely contamination: no complaints of UTI and NO CVA tenderness on exam For her uncontrolled blood pressure: Losartan increased to 100 mg PO 1x/day at 2 PM 12/16/17 Hydralazine increased to 25 mg PO 4x/day starting at 6 PM 12/15/17 Metprolol 25 mg PO 2x/day F/U urine metanephrine F/U Renal Artery U/S to see if there is any evidence of stenosis F/U TSH and T4 HOLD off on CT Head for now considering NO neurologic complaints IVF discontinued F/U Stool culture For the n/v she is on Zofran alternating with Reglan as needed Also please note that she revealed Colonoscopy 3 years ago that was unremarkable. Hysterectomy and last Pap 3 years ago. Last Mammogram this June 2017 and unremarkable as per patient. Plan gone over with patient and her daughter who was at bedside Once blood pressure better under control and n/v improve, then patient stable for discharge Derrick Yoder D.O.
[2017-12-16 06:43] LABS: BASO % 0.3 % (0.0-2.0); EOS % 0.1 % (0.0-4.0); HEMOGLOBIN 13.8 g/dL (11.0-16.0); LYMPH # 2.3 K/uL (1.0-4.3); LYMPH % 19.3 % (20.0-40.0); MEAN CORPUSCULAR HEMOGLOBIN 30.3 pg (27.0-31.0); MEAN CORPUSCULAR HGB CONC 34.4 g/dL (33.0-37.0); MEAN PLATELET VOLUME 8.4 fL (7.2-11.7); MONO # 1.3 K/uL (0.0-0.8); MONO % 10.8 % (0.0-10.0); NEUT # 8.5 K/uL (1.8-7.0); NEUT % 69.5 % (50.0-75.0); RBC 4.57 Mil/uL (3.80-5.20); RED CELL DISTRIBUTION WIDTH 13.4 % (11.5-14.5); WHITE BLOOD COUNT 12.2 K/uL (4.8-10.8)
[2017-12-16 08:14] LABS: ALB/GLOB RATIO 1.5 (1.0-2.1); ALBUMIN 4.6 g/dL (3.5-5.0); ALT/SGPT 72 U/L (9-52); AST/SGOT 46 U/L (14-36); BLOOD UREA NITROGEN 17 mg/dL (7-17); CALCIUM 9.1 mg/dl (8.6-10.4); GFR AFRICAN-AMERICAN > 60; GFR NON-AFRICAN AMERICAN > 60
--- NOTE | 2017-12-16 08:24 | RAD ---
Date of service: 12/13/2017 PROCEDURE: Radiographs of the chest and abdomen (obstructive series) HISTORY: RIght flank pain COMPARISON: No prior. TECHNIQUE: AP radiograph of the chest, with upright and supine radiographs of the abdomen. FINDINGS: CHEST: Lungs: Clear. Cardiovascular: Normal size heart. No pulmonary vascular congestion. Pleura: No pleural fluid. No pneumothorax. Other findings: None. ABDOMEN AND PELVIS: Bowel: No evidence of bowel obstruction. Free air: None. Bones: Lumbar dextroscoliosis. Other findings: Surgical clips in right upper quadrant presumed status post cholecystectomy. IMPRESSION: No evidence of bowel obstruction. No evidence of pulmonary infiltrate. No evidence of urinary calculus.
[2017-12-16] MEDS: Pantoprazole 40 mg EC Tab PO SCH (10:43)
[2017-12-16 15:59] VITALS: O2SAT 97
--- NOTE | 2017-12-16 17:26 | CP.PCM.PN ---
<Noemí Dunn - Last Filed: 12/16/17 18:04> Subjective - Date & Time of Evaluation Date of Evaluation: 12/16/17 Time of Evaluation: 09:10 - Subjective Subjective: PGY-1 Noemí Dunn D.O. Medicine progress note for Dr. Damon's service: Patient is seen and examined this morning. She is still complaining of abdominal pain. She is also stating she does not have an appetite. She has not vomited since yesterday. She is denying current nausea. Her last BM was yesterday morning-it was loose, no blood. Later in the day, the patient is complaining of a ROSADO with associated nausea. Will order CT head. Objective - Vital Signs/Intake and Output Vital Signs (last 24 hours): Temp Pulse Resp BP Pulse Ox 98.2 F 83 20 158/96 H 97 12/16/17 15:30 12/16/17 15:30 12/16/17 15:30 12/16/17 15:30 12/16/17 15:30 Intake and Output: 12/16/17 12/16/17 06:59 18:59 Intake Total 350 Balance 350 - Medications Medications: Current Medications Docusate Sodium (Colace) 100 mg PO TID [facility] Last Admin: 12/16/17 14:24 Dose: 100 mg Heparin Sodium (Porcine) (Heparin) 5,000 units SC Q12 [facility] Last Admin: 12/16/17 10:49 Dose: 5,000 units Hydralazine HCl (Apresoline) 50 mg PO QID [facility] Last Admin: 12/16/17 14:24 Dose: 50 mg Ketorolac Tromethamine (Toradol) 30 mg IVP Q6 PRN PRN Reason: Pain, severe (8-10) Last Admin: 12/16/17 09:03 Dose: 30 mg Ketorolac Tromethamine (Toradol) 15 mg IVP Q6 PRN PRN Reason: Pain, moderate (4-7) Last Admin: 12/16/17 05:06 Dose: 15 mg Losartan Potassium (Cozaar) 100 mg PO Q24H [facility] Last Admin: 12/16/17 14:24 Dose: 100 mg Metoclopramide HCl (Reglan) 10 mg IVP Q6H PRN PRN Reason: Nausea/Vomiting Last Admin: 12/15/17 09:37 Dose: 10 mg Metoprolol Tartrate (Lopressor) 25 mg PO BID [facility] Last Admin: 12/16/17 10:43 Dose: 25 mg Ondansetron HCl (Zofran Inj) 4 mg IVP Q6 PRN PRN Reason: Nausea/Vomiting Last Admin: 12/14/17 21:18 Dose: 4 mg Pantoprazole Sodium (Protonix Ec Tab) 40 mg PO DAILY [facility] Last Admin: 12/16/17 10:43 Dose: 40 mg - Labs Labs: 12/16/17 06:34 12/16/17 06:34 - Constitutional Appears: Non-toxic - Head Exam Head Exam: ATRAUMATIC, NORMAL INSPECTION, NORMOCEPHALIC - Eye Exam Eye Exam: EOMI, Normal appearance - ENT Exam ENT Exam: Mucous Membranes Moist, Normal Exam - Neck Exam Neck Exam: Normal Inspection. absent: Lymphadenopathy - Respiratory Exam Respiratory Exam: Clear to Ausculation Bilateral, NORMAL BREATHING PATTERN. absent: Rhonchi, Wheezes - Cardiovascular Exam Cardiovascular Exam: REGULAR RHYTHM. absent: Murmur - GI/Abdominal Exam GI & Abdominal Exam: Soft, Tenderness (R>L, R flank pain), Normal Bowel Sounds. absent: Guarding, Rigid, Mass, Rebound - Rectal Exam Rectal Exam: Deferred - Back Exam Back Exam: NORMAL INSPECTION - Neurological Exam Neurological Exam: Alert, Awake, Oriented x3 - Psychiatric Exam Psychiatric exam: Normal Affect, Normal Mood - Skin Skin Exam: Dry, Intact, Normal Color, Warm Assessment and Plan - Assessment and Plan (Free Text) Assessment: Patient is a 62 yo female with a history of HTN, nephrolithiasis, cholecystectomy, and osteoporosis who presented to the ED with R-sided abdominal pain. Work-up thus far has been negative for an organic etiology. Patient was also found to have HTN urgency. Plan: HTN urgency, acute, improving - Vitals q4hrs - Increased medications: Hydralazine 50 mg PO four times a day, Lopressor 25 mg BID, Losartan 100 mg daily - F/u renal u/s - F/u urine metanephrines - TSH, free T4 wnl - No adrenal lesions or masses noted on CT imaging Abdominal pain, acute- likely musculoskeletal in nature - CT abdomen and pelvis without contrast - Diverticulosis noted. Negative study for nephrolithiasis. - CTA chest, abdomen, pelvis- negative for ischemic disease - Obstruction series ordered- Confirms stool. Refer to complete report. Colace added on. Patient is moving bowels - D-dimer- Negative - EKG- Sinus tach - F/u stool leukocytes Nausea and Vomiting, acute, improving - Zofran 4 mg IV q6hrs PRN - Reglan 10 mg IV q6hrs PRN - Toradol 15-30 IV q6hrs PRN - Advance diet as tolerated Leukocytosis, improving- likely acute phase response, stress mediated - Blood Cx negative >3 days - Urine Cx <10,000 cfu Headache, acute - Tylenol 650 mg PO q6hrs PRN - Toradol 15-30 IV q6hrs PRN - CT head 12/16: no acute pathology or mass effect IVF: not indicated Diet: clear liquids VTE ppx: Heparin SC Q12 GI ppx: Protonix 40 mg PO daily, Colace 100 mg PO TID Code status: full code <Caren Damon V - Last Filed: 12/16/17 20:45> Objective - Vital Signs/Intake and Output Vital Signs (last 24 hours): Temp Pulse Resp BP Pulse Ox 98.2 F 83 20 158/96 H 97 12/16/17 15:30 12/16/17 15:30 12/16/17 15:30 12/16/17 17:54 12/16/17 15:30 - Medications Medications: Current Medications Acetaminophen (Tylenol 325mg Tab) 650 mg PO Q6 PRN PRN Reason: Pain, Mild (1-3) Docusate Sodium (Colace) 100 mg PO TID [facility] Last Admin: 12/16/17 17:54 Dose: 100 mg Heparin Sodium (Porcine) (Heparin) 5,000 units SC Q12 [facility] Last Admin: 12/16/17 10:49 Dose: 5,000 units Hydralazine HCl (Apresoline) 50 mg PO QID [facility] Last Admin: 12/16/17 17:55 Dose: 50 mg Ketorolac Tromethamine (Toradol) 30 mg IVP Q6 PRN PRN Reason: Pain, severe (8-10) Last Admin: 12/16/17 09:03 Dose: 30 mg Ketorolac Tromethamine (Toradol) 15 mg IVP Q6 PRN PRN Reason: Pain, moderate (4-7) Last Admin: 12/16/17 05:06 Dose: 15 mg Losartan Potassium (Cozaar) 100 mg PO Q24H [facility] Last Admin: 12/16/17 14:24 Dose: 100 mg Metoclopramide HCl (Reglan) 10 mg IVP Q6H PRN PRN Reason: Nausea/Vomiting Last Admin: 12/15/17 09:37 Dose: 10 mg Metoprolol Tartrate (Lopressor) 25 mg PO BID [facility] Last Admin: 12/16/17 17:54 Dose: 25 mg Ondansetron HCl (Zofran Inj) 4 mg IVP Q6 PRN PRN Reason: Nausea/Vomiting Last Admin: 12/14/17 21:18 Dose: 4 mg Pantoprazole Sodium (Protonix Ec Tab) 40 mg PO DAILY [facility] Last Admin: 12/16/17 10:43 Dose: 40 mg - Labs Labs: 12/16/17 06:34 12/16/17 06:34 Attending/Attestation - Attestation I have personally seen and examined this patient.: Yes I have fully participated in the care of the patient.: Yes I have reviewed all pertinent clinical information, including history, physical exam and plan: Yes Notes (Text): Patient seen, examined, and case discussed with day-time resident. This is my first visit with the patient. Reviewed labs, and imaging noted. Recommendations made to resident during rounds. Addendum noted in my assessment and plan below. Assessment/Plan 1) Hypertensive Urgency History of Hypertension Assessment and Plan: * CT Head (12/16/17): no evidence of acute intracranial hemorrhage, mass effect, or midline shift * Given dose of Hydralazine 10mg IVP X1 * Pending Renal Artery Duplex r/o renal artery stenosis * Hydralazine 50mg PO QID * Cozaar 10mg POQ24H * Lopressor 25mg PO BID * Improved this afternoon * 24 hour urine collection in progress Status: Acute 2) Abdominal Pain-->resolved History of Diverticulosis Assessment and Plan: * Resolved * CT abdomen/Pelvis w/o PO nor IV contrast (12/13/17); no acute abdominal or pelvic abnormality. Specifically, no evidence for nephrolithiais, hydronephrosis , or obstructive uropathy. Extensive diverticulosis, worsen in the left hemicolon without evidence of CT evidence for acute diverticulitis * Obstructive series (12/13/17): no evidence of bowel obstruction. No evidence of pulmonary infiltrate. No evidence of urinary calculus * CT Chest/Abdominal/Pelvis (12/13/17): thoracic aorta and great vessels are widely patent without evidence of occlusion significant atherosclerotic disease , aneurysm, nor dissection; abdominal aorta and iliac arteries are widely opacified and patent throughout without occlusion. No evidence of abdominal aortic aneurysm no dissection. No definitive evidence of solid organ infarct for bowel ischemia Status: Acute 3) Nausea and Vomiting Assessment and Plan: * Patient seen this morning. She does not feel nausea nor further episodes of vomitting since yesterday * Patient has had CT head which is negative for acute findings. * PRN: * Zofran 4mg IVP Q 6H PRN nausea/vomitting * Reglan 10mg IVP Q6H [place] nausea/vomitting Status: Resolved 4) Leukocytosis Assessment and Plan: * Downtrending * Blood cultures (12/13/17): no growth after 3 days X2 * Urine culture (12/13/17): < 10,000 CFU/ml * Procalcitonin low Status: Acute 5) Transaminitis Assessment and Plan: * mild * monitor LFTs Status: Acute 6) Prophylactic measure Assessment and Plan: * Heparin 5000 units acus24T * Protonix 40mg PO daily Status: Acute Disposition: possible discharge tomorrow if blood improves and able to tolerate diet.
--- NOTE | 2017-12-16 17:48 | CT ---
Date of service: 12/16/2017 PROCEDURE: CT HEAD WITHOUT CONTRAST. HISTORY: headache, N/V COMPARISON: None available. TECHNIQUE: Axial computed tomography images were obtained through the head/brain without intravenous contrast. Radiation dose: Total exam DLP = 906.04 mGy-cm. This CT exam was performed using one or more of the following dose reduction techniques: Automated exposure control, adjustment of the mA and/or kV according to patient size, and/or use of iterative reconstruction technique. FINDINGS: HEMORRHAGE: No intracranial hemorrhage. BRAIN: No mass effect or edema. No atrophy or chronic microvascular ischemic changes. VENTRICLES: Unremarkable. No hydrocephalus. CALVARIUM: Unremarkable. PARANASAL SINUSES: Unremarkable as visualized. No significant inflammatory changes. MASTOID AIR CELLS: Unremarkable as visualized. No inflammatory changes. OTHER FINDINGS: None. IMPRESSION: No evidence of acute intracranial hemorrhage mass effect or midline shift.
[2017-12-16] MEDS ORDERED: Potassium Chloride 20 mEq ER Tab PO ONE (22:00)
[2017-12-17 07:49] VITALS: TEMP 98.7
[2017-12-17 08:13] LABS: BASO # 0.1 K/uL (0.0-0.2); BASO % 0.5 % (0.0-2.0); EOS % 0.1 % (0.0-4.0); HEMOGLOBIN 14.1 g/dL (11.0-16.0); LYMPH # 2.5 K/uL (1.0-4.3); LYMPH % 22.5 % (20.0-40.0); MEAN CELL VOLUME 88.1 fL (81.0-99.0); MEAN CORPUSCULAR HEMOGLOBIN 29.8 pg (27.0-31.0); MEAN CORPUSCULAR HGB CONC 33.8 g/dL (33.0-37.0); MEAN PLATELET VOLUME 8.3 fL (7.2-11.7); MONO # 1.4 K/uL (0.0-0.8); NEUT # 7.4 K/uL (1.8-7.0); NEUT % 64.9 % (50.0-75.0); RBC 4.74 Mil/uL (3.80-5.20); RED CELL DISTRIBUTION WIDTH 13.7 % (11.5-14.5); WHITE BLOOD COUNT 11.3 K/uL (4.8-10.8)
[2017-12-17 08:23] LABS: GFR AFRICAN-AMERICAN > 60; GFR NON-AFRICAN AMERICAN > 60
[2017-12-17 08:25] LABS: ALB/GLOB RATIO 1.5 (1.0-2.1); ALBUMIN 4.4 g/dL (3.5-5.0); ALT/SGPT 56 U/L (9-52); AST/SGOT 19 U/L (14-36); BLOOD UREA NITROGEN 18 mg/dL (7-17); CALCIUM 8.9 mg/dl (8.6-10.4)
[2017-12-17] MEDS: Pantoprazole 40 mg EC Tab PO SCH (09:58)
[2017-12-17 10:00] VITALS: BP 141/87
--- NOTE | 2017-12-17 11:40 | CP.PCM.DIS ---
Provider - Provider Date of Admission: 12/16/17 15:35 Attending physician: Caren Damon DO Primary care physician: Dr. Lynch Consults: none Time Spent in preparation of Discharge (in minutes): 45 Diagnosis - Discharge Diagnosis (1) Hypertensive urgency Status: Resolved Priority: High (2) Abdominal pain Status: Resolved Priority: High (3) Nausea & vomiting Status: Resolved Priority: Medium (4) Leukocytosis Status: Resolved Priority: Medium Hospital Course - Lab Results Lab Results: Micro Results 12/13/17 12:15 Blood-Venous Blood Culture - Preliminary NO GROWTH AFTER 3 DAYS 12/13/17 11:45 Blood-Venous Blood Culture - Preliminary NO GROWTH AFTER 3 DAYS 12/13/17 08:05 Urine Urine Culture - Final <10,000 CFU/ML. MULTIPLE SPECIES. PROBABLE CONTAMINATION. Most Recent Lab Values WBC 11.3 K/uL (4.8-10.8) H 12/17/17 08:00 RBC 4.74 Mil/uL (3.80-5.20) 12/17/17 08:00 Hgb 14.1 g/dL (11.0-16.0) 12/17/17 08:00 Hct 41.8 % (34.0-47.0) 12/17/17 08:00 MCV 88.1 fL (81.0-99.0) 12/17/17 08:00 MCH 29.8 pg (27.0-31.0) 12/17/17 08:00 MCHC 33.8 g/dL (33.0-37.0) 12/17/17 08:00 RDW 13.7 % (11.5-14.5) 12/17/17 08:00 Plt Count 271 K/uL (130-400) 12/17/17 08:00 MPV 8.3 fL (7.2-11.7) 12/17/17 08:00 Neut % (Auto) 64.9 % (50.0-75.0) 12/17/17 08:00 Lymph % (Auto) 22.5 % (20.0-40.0) 12/17/17 08:00 [place] % (Auto) 12.0 % (0.0-10.0) H 12/17/17 08:00 Eos % (Auto) 0.1 % (0.0-4.0) 12/17/17 08:00 Baso % (Auto) 0.5 % (0.0-2.0) 12/17/17 08:00 Neut # (Auto) 7.4 K/uL (1.8-7.0) H 12/17/17 08:00 Lymph # (Auto) 2.5 K/uL (1.0-4.3) 12/17/17 08:00 [place] # (Auto) 1.4 K/uL (0.0-0.8) H 12/17/17 08:00 Eos # (Auto) 0.0 K/uL (0.0-0.7) 12/17/17 08:00 Baso # (Auto) 0.1 K/uL (0.0-0.2) 12/17/17 08:00 Neutrophils % (Manual) 86 % (50-75) H 12/13/17 08:05 Band Neutrophils % 3 % (0-2) H 12/13/17 08:05 Lymphocytes % (Manual) 7 % (20-40) L 12/13/17 08:05 Monocytes % (Manual) 4 % (0-10) 12/13/17 08:05 Platelet Estimate Normal (NORMAL) 12/13/17 08:05 RBC Morphology Normal 12/13/17 08:05 D-Dimer, Quantitative < 200 ng/mlDDU (0-243) 12/13/17 12:03 pO2 47 mm/Hg (30-55) 12/13/17 12:12 VBG pH 7.48 (7.32-7.43) H 12/13/17 12:12 VBG pCO2 21 mmHg (40-60) L 12/13/17 12:12 VBG HCO3 20.2 mmol/L 12/13/17 12:12 VBG Total CO2 16.2 mmol/L (22-28) L 12/13/17 12:12 VBG O2 Sat (Calc) 90.1 % (40-65) H 12/13/17 12:12 VBG Base Excess -5.7 mmol/L (0.0-2.0) L 12/13/17 12:12 VBG Potassium 2.0 mmol/L (3.6-5.2) L* 12/13/17 12:12 Sodium 145.0 mmol/l (132-148) 12/13/17 12:12 Chloride 120.0 mmol/L (98-107) H 12/13/17 12:12 Glucose 71 mg/dl (65-105) 12/13/17 12:12 Lactate 1.4 mmol/L (0.7-2.1) 12/13/17 12:12 Crit Value Called To Aubrey jerez rn 12/13/17 12:12 Crit Value Called By Monika 12/13/17 12:12 Crit Value Read Back Y 12/13/17 12:12 Blood Gas Notified Time 1220 12/13/17 12:12 Sodium 131 mmol/L (132-148) L 12/17/17 08:00 Potassium 3.6 mmol/L (3.6-5.2) 12/17/17 08:00 Chloride 95 mmol/L (98-107) L 12/17/17 08:00 Carbon Dioxide 24 mmol/L (22-30) 12/17/17 08:00 Anion Gap 16 (10-20) 12/17/17 08:00 BUN 18 mg/dL (7-17) H 12/17/17 08:00 Creatinine 0.6 mg/dL (0.7-1.2) L 12/17/17 08:00 Est GFR ( Amer) > 60 12/17/17 08:00 Est GFR (Non-Af Amer) > 60 12/17/17 08:00 Random Glucose 124 mg/dL (65-105) H 12/17/17 08:00 Calcium 8.9 mg/dl (8.6-10.4) 12/17/17 08:00 Phosphorus 2.1 mg/dL (2.5-4.5) L 12/17/17 08:00 Magnesium 2.0 mg/dL (1.6-2.3) 12/17/17 08:00 Total Bilirubin 0.7 mg/dL (0.2-1.3) 12/17/17 08:00 AST 19 U/L (14-36) 12/17/17 08:00 ALT 56 U/L (9-52) H D 12/17/17 08:00 Alkaline Phosphatase 67 U/L (38-126) 12/17/17 08:00 Total Protein 7.3 g/dL (6.3-8.3) 12/17/17 08:00 Albumin 4.4 g/dL (3.5-5.0) 12/17/17 08:00 Globulin 2.9 gm/dL (2.2-3.9) 12/17/17 08:00 Albumin/Globulin Ratio 1.5 (1.0-2.1) 12/17/17 08:00 Lipase 93 U/L (23-300) 12/13/17 08:05 Procalcitonin < 0.05 NG/ML (0.19-0.49) L 12/13/17 12:03 Free T4 1.35 ng/dL (0.78-2.19) 12/16/17 06:34 TSH 3rd Generation 0.50 mIU/L (0.46-4.68) 12/16/17 06:34 Venous Blood Potassium 2.0 mmol/L (3.6-5.2) L* 12/13/17 12:12 Urine Color Yellow (YELLOW) 12/13/17 08:05 Urine Clarity Clear (Clear) 12/13/17 08:05 Urine pH 7.0 (5.0-8.0) 12/13/17 08:05 Ur Specific Mobile 1.019 (1.003-1.030) 12/13/17 08:05 Urine Protein 1+ mg/dL (NEGATIVE) H 12/13/17 08:05 Urine Glucose (UA) Normal mg/dL (Normal) 12/13/17 08:05 Urine Ketones Negative mg/dL (NEGATIVE) 12/13/17 08:05 Urine Blood 1+ (NEGATIVE) H 12/13/17 08:05 Urine Nitrate Negative (NEGATIVE) 12/13/17 08:05 Urine Bilirubin Negative (NEGATIVE) 12/13/17 08:05 Urine Urobilinogen Normal mg/dL (0.2-1.0) 12/13/17 08:05 Ur Leukocyte Esterase Neg Anitra/uL (Negative) 12/13/17 08:05 Urine WBC (Auto) < 1 /hpf (0-5) 12/13/17 08:05 Urine RBC (Auto) 16 /hpf (0-3) H 12/13/17 08:05 Ur Squamous Epith Cells 1 /hpf (0-5) 08/10/18 08:05 - Hospital Course Hospital Course: 62 year old female with past medical history significant for HTN, nephrolithiasis, osteoporosis and arthritis presents with right sided pain which she has been experiencing for the past two days. Patient states that her symptoms began with a achy, burning pain two days ago. Patient rates the pain an 8 or 10 in intensity. She states that the pain is in the right flank area with radiation to the upper back. She states that she is able to eat without difficulties. She was able to tolerate her dinner yesterday at 8:30pm. The abdominal pain is constant in nature. It is not associated with meals. She states that she has had normal bowel and urination habits as well. She began experiencing nausea and vomiting yesterday at 4am. Patient states that she had 3 episodes of non bloody-non bilious emesis at home. She later had 3 episodes of emesis in the ER. Patient denies fevers, chest pain, headaches, constipation , hematemesis, hematochezia, dysuria at this time. On admission, patient's BP was elevated at 185/99. It remained elevated (SBP 160s-190s) during the first 2 days of her admission. Medications were increased and added for better BP control. BP decreased to SBP (130s-150s) by day 3. Patient developed a ROSADO and CT head was done to rule out any cranial cause- no mass effect or midline shift was identified. Renal u/s was done for refractory HTN, and read was pending at time of discharge. CT did not reveal any adrenal masses. Work-up for etiology of patient's abdominal pain, nausea, and vomiting did not reveal a cause. including CT A/P, obstructive series, and CTA chest, abd , pelvis. Upon discharge, the patient was tolerating a full liquid diet. She denied nausea and vomiting (no emesis x 2days). She denied abdominal pain. Patient's BP was also well-controlled on new medication regimen, and patient was discharged with prescriptions. She will follow-up with her primary physician for further management and results of pending studies (renal u/s and urine metanephrines). Discharge Exam - Head Exam Head Exam: ATRAUMATIC, NORMAL INSPECTION, NORMOCEPHALIC - Eye Exam Eye Exam: EOMI, Normal appearance - ENT Exam ENT Exam: Mucous Membranes Moist, Normal Exam - Neck Exam Neck exam: Normal Inspection - Respiratory Exam Respiratory Exam: Clear to PA & Lateral, NORMAL BREATHING PATTERN - Cardiovascular Exam Cardiovascular Exam: REGULAR RHYTHM, +S1, +S2 - GI/Abdominal Exam GI & Abdominal Exam: Normal Bowel Sounds, Soft, Unremarkable - Rectal Exam Rectal Exam: Deferred - Extremities Exam Extremities exam: normal inspection - Back Exam Back exam: NORMAL INSPECTION - Neurological Exam Neurological exam: Alert, CN II-XII Intact, Oriented x3 - Psychiatric Exam Psychiatric exam: Normal Affect, Normal Mood - Skin Skin Exam: Dry, Intact, Normal Color, Warm Discharge Plan - Discharge Medications Prescriptions: hydrALAZINE [Apresoline] 50 mg PO QID #120 tab Losartan [Cozaar] 100 mg PO Q24H #30 tab Metoprolol Tartrate [Lopressor] 25 mg PO BID #60 tab - Follow Up Plan Condition: IMPROVED Disposition: HOME/ ROUTINE Instructions: DASH Diet, Nausea and Vomiting, Adult (DC), Low Salt Diet, Hydralazine, Losartan, Metoprolol, Acute Abdominal Pain (DC), Acute Abdominal Pain (GEN), Hypertension (DC) Additional Instructions: Patient is medically stable for discharge home as per Dr. Damon. Patient is instructed to follow-up with primary care physician, Dr. Lynch, within one week of discharge. She will also be able to follow-up renal ultrasound and 24- hour urine results as an outpatient through his office. Patient will be provided with the following prescriptions: Losartan 100 mg- take one by mouth daily Metoprolol 25 mg- take one by mouth twice per day Hydralazine 50 mg- take one by mouth four times per day Patient should not take any NSAIDs. She can take Tylenol 650 mg every 6 hours if needed for pain. If symptoms return or worsen, patient is to go to the emergency room. This was explained to the patient who understands and agrees. El paciente es mdicamente estable para el deepali domiciliaria segn el Dr. Damon. El paciente recibe instrucciones de seguimiento con el mdico de atenci n primaria, el Dr. Lynch, tavon semana despus del deepali. Tambin podr realizar un seguimiento de ultrasonido renal y resultados de orina de 24 horas dyana paciente ambulatorio a travs de ross consultorio. Al paciente se le proporcionarn las siguientes prescripciones: Losartan 100 mg- tome steven por la boca todos los slaughter Metoprolol 25 mg- tome steven por la boca dos veces por da Hidralazina 50 mg: tome steven por va oral cuatro veces al da El paciente no debe johnson ningn NSAID. Carissa puede johnson 650 mg de Tylenol cada 6 horas si es necesario para el dolor. Si los sntomas regresan o empeoran, el paciente debe ir a la cindy de emergencias. [place] se le explic al paciente que entiende y acepta. Referrals: Selvin Lynch MD [Staff Provider] -
[2017-12-17 12:10] VITALS: PULSE 68
--- NOTE | 2017-12-17 12:52 | VASCLAB ---
Date of service: 12/16/2017 PROCEDURE: Renal Artery Duplex Scan HISTORY: Uncontrolled HTN COMPARISON: None available. TECHNIQUE: Real-time ultrasonography evaluation of the renal arteries were performed. Comparison is made to the aorta. Report prepared by CARMEN Torres, RVT FINDINGS: AORTA: Patent. Peak systolic velocity 103 centimeters/second RIGHT RENAL ARTERY: Renal artery to aorta ratio: 3.0 * Proximal segment: Patent. Peak systolic velocity 308 centimeters/second * Mid segment: Patent. Peak systolic velocity 192 centimeters/second * Distal segment: Patent. Peak systolic velocity 135 centimeters/second Other findings: Right Kidney measures approximately 11.31 centimeters. LEFT RENAL ARTERY: Renal artery to aorta ratio: 1.7 * Proximal segment: Patent. Peak systolic velocity 142 centimeters/second * Mid segment: Patent. Peak systolic velocity 174 centimeters/second * Distal segment: Patent. Peak systolic velocity 132 centimeters/second Other findings: Left Kidney measures approximately 11.33 centimeters. IMPRESSION: Hemodynamically significant stenosis of the right proximal renal artery, clinical correlation recommended. No definite hemodynamically significant stenosis involving the left renal artery.
--- NOTE | 2017-12-17 17:15 | CARD ---
APPROVED REPORT Date of service: 12/13/2017 EKG Measurement Heart [id number] <Conclusion> Normal sinus rhythm Minimal voltage criteria for LVH, may be normal variant Nonspecific T wave abnormality Abnormal ECG
[2017-12-17] MEDS ORDERED: Potassium Chloride 20 mEq ER Tab PO ONE (20:46)
[2017-12-19 16:36] LABS: STOOL SODIUM 11.8 mEq/L
== END 2017-12-17 14:56 | disposition home or self-care (01) | DRG 813 ==
LOC: C.ER 07:19 → C.9E 11:36 → C.6T 12:41 → C.9E 12:55 → C.6T 13:49 → OBSVTOIN 12-16 15:35
PROVIDERS: ADMIT Hospitalist; ATTEND Hospitalist
DX: R10.9 Unspecified abdominal pain (principal); N18.9 Chronic kidney disease, unspecified; I12.9 Hypertensive chronic kidney disease with stage 1 through stage 4 chronic kidney disease, or unspecified chronic kidney disease; I16.0 Hypertensive urgency; M06.9 Rheumatoid arthritis, unspecified; M81.0 Age-related osteoporosis without current pathological fracture; Z90.49 Acquired absence of other specified parts of digestive tract; D72.829 Elevated white blood cell count, unspecified; K57.90 Diverticulosis of intestine, part unspecified, without perforation or abscess without bleeding; R11.2 Nausea with vomiting, unspecified